=== PATIENT | female | born 1965 | race Caucasian/White ===

== ENCOUNTER → 2020-03-25 08:39 | Outpatient (BNVA) | payer BC, SELFPAY | PROVIDERS: Family Provider Nurse Practitioner Family; PCP Nurse Practitioner Family; Visit Provider Licensed Practical Nurse | DX: M50.020 Cervical disc disorder with myelopathy, mid-cervical region, unspecified level (principal); M51.17 Intervertebral disc disorders with radiculopathy, lumbosacral region; E66.01 Morbid (severe) obesity due to excess calories; Z68.42 Body mass index [BMI] 45.0-49.9, adult | CPT/HCPCS: 99204 ==

== ENCOUNTER → 2020-04-21 14:08 | Outpatient (BNVA) | payer BC, SELFPAY | PROVIDERS: Family Provider Nurse Practitioner Family; PCP Nurse Practitioner Family; Referring Provider Licensed Practical Nurse; Visit Provider Specialist | DX: R20.0 Anesthesia of skin (principal); R20.2 Paresthesia of skin | CPT/HCPCS: 95909 ==

== ENCOUNTER 2020-04-22 09:42 | Outpatient (CLI) | payer BC, SELFPAY ==
--- NOTE | 2020-04-22 11:00 | MR_ITS ---
WS: [id number] MRI LUMBAR SPINE NONCONTRAST TECHNIQUE: Sagittal T1, T2 and STIR imaging. Axial T1 and T2 imaging. CLINICAL INFORMATION: M51.17 Intervertebral disc disorders with radiculopathy, ... FINDINGS: Mild lumbar curve. No acute compression. Disc space narrowing worse L5-S1. L1-L2: Normal. L2-L3: Normal L3-L4: No significant disc bulging. Mild facet arthropathy. Spinal canal is patent. Mild left foramin al narrowing with small left foraminal protrusion. L4-L5: No significant disc bulging. Mild facet arthropathy. Spinal canal and foramen are patent. L5-S1: Mild disc bulging with osteophytic ridging. Slight effacement of ventral thecal sac. Mild righ t greater than left foraminal narrowing. Mild facet arthropathy. Partially visualized left renal cyst measuring 2.9 cm. Mild disc bulging cervical spine at C5-6. MR/MR lumbar spine wo con* [id number] IMPRESSION: 1. Mild lumbar curve. No acute compression. No high-grade central canal stenos is. 2. Tiny left foraminal protrusion L3-4 with mild left foraminal narrowing. 3. Disc osteophytic ridging L5-S1 with mild right greater than left foraminal narrowing. 4. Mild facet arthropathy L3-L5.
== END 2020-04-22 09:43 | disposition home or self-care (01) ==
LOC: RADSHAW 09:53
PROVIDERS: PCP Nurse Practitioner Family; Visit Provider Licensed Practical Nurse
DX: M51.17 Intervertebral disc disorders with radiculopathy, lumbosacral region; M47.816 Spondylosis without myelopathy or radiculopathy, lumbar region; M25.78 Osteophyte, vertebrae; M51.26 Other intervertebral disc displacement, lumbar region
CPT/HCPCS: 72148

== ENCOUNTER 2020-04-22 09:59 | Outpatient (CLI) | payer BC, SELFPAY ==
--- NOTE | 2020-04-22 10:05 | MR_ITS ---
WS: [id number] MRI LEFT KNEE NONCONTRAST TECHNIQUE: Axial PD, coronal PD fat sat, coronal PD, sagittal PD, and sagittal PD fat-sat images obta ined. CLINICAL INFORMATION: PAIN IN LEFT KNEE;SYNOVIAL CYST OF KNEE COMPARISON: None. FINDINGS: Distal quadriceps and patella tendons are intact. Normal ACL and PCL. Intrasubstance signal abnormali ty involving the posterior horn medial meniscus. Lateral meniscus is normal in appearance. Moderate chondromalacia involving the lateral patella facet. No subchondral edema. Medial and lateral collateral ligaments are intact. Normal popliteal fossa. No popliteal cyst in the popliteal fossa. S mall amount of prepatellar soft tissue edema. Mild chondromalacia involving the medial and lateral breanna int compartments. MR/MR knee LT wo con* [id number] IMPRESSION: 1. Normal popliteal fossa. Trace fluid along the gastrocnemius. No popliteal c yst. 2. Anterior and posterior cruciate ligaments are intact. 3. Chronic intrasubstance signal abnormality involving the posterior horn medi al meniscus. No acute appearing meniscal tears. 4. Moderate chondromalacia patella involving the lateral patella facet. Hypert rophic patella. 5. No other significant findings.
--- NOTE | 2020-04-22 13:47 | XRR_ITS ---
PROCEDURE INFORMATION: Exam: XR Right Shoulder Exam date and time: 04/22/2020 2:11 PM Age: 54 years old Clinical indication: Pain; Shoulder; Right; Additional info: Pain in right shoulder, pops TECHNIQUE: Imaging protocol: XR Right shoulder. Views: 2 or more views. COMPARISON: No relevant prior studies available. FINDINGS: Bones/joints: There is no evidence for acute fracture or malalignment. No significant arthritic change. Soft tissues: Normal. XR/XR shoulder RT min 2V* [id number] IMPRESSION: No acute findings.
== END 2020-04-22 10:00 | disposition home or self-care (01) ==
LOC: RADSHAW 10:04
PROVIDERS: PCP Nurse Practitioner Family; Visit Provider Nurse Practitioner Family
DX: M25.511 Pain in right shoulder (principal); M71.22 Synovial cyst of popliteal space [Baker], left knee; M25.562 Pain in left knee; M22.42 Chondromalacia patellae, left knee
CPT/HCPCS: 73030; 73721

== ENCOUNTER 2020-05-18 10:19 | Outpatient (CLI) | payer BC, SELFPAY ==
--- NOTE | 2020-05-18 10:24 | MM_ITS ---
WS: [id number] Bilateral screening digital mammogram, 05/18/2020 Clinical Data: SCREENING Comparison: None. Findings: The breast parenchymal pattern shows fat replacement. No spiculated masses or clustered calcification s are seen. There are no secondary signs of carcinoma. MM/[place] [id number] Impression: 1. Negative bilateral mammogram. 2. Recommend annual screening mammograms. BIRADS: 1-Negative FOLLOW UP: 1 Year Follow-up The CAD loom stop checker was used.
== END 2020-05-18 10:20 | disposition home or self-care (01) ==
LOC: RADSHAW 10:22
PROVIDERS: PCP Nurse Practitioner Family; Visit Provider Nurse Practitioner Family
DX: Z12.31 Encounter for screening mammogram for malignant neoplasm of breast (principal)
CPT/HCPCS: 77067

== ENCOUNTER → 2020-06-22 13:29 | Outpatient (BNVA) | payer BC, SELFPAY | PROVIDERS: PCP Nurse Practitioner Family; Referring Provider Licensed Practical Nurse; Visit Provider Specialist | DX: G62.9 Polyneuropathy, unspecified (principal); E66.01 Morbid (severe) obesity due to excess calories; Z68.42 Body mass index [BMI] 45.0-49.9, adult | CPT/HCPCS: G0463 ==

== ENCOUNTER 2020-06-24 13:57 | Outpatient (CLI) | payer BC, SELFPAY ==
--- NOTE | 2020-06-24 14:10 | XR_ITS ---
WS: [id number] Lumbar spine with flexion, extension, and neutral lateral, 06/24/2020 Clinical Data: M51.17 - Intervertebral disc disorders with radiculopathy, lumbosacral region-S1. Comparison: None. Findings: No compression fractures or subluxation is seen. There is disc space narrowing at L5-S1. No limitation of motion or subluxation is seen in flexion or extension.. XR/XR lumbar spine f/e only [id number] Impression: 1. Degenerative disc narrowing at L5-S1. 2. Negative for limitation of motion or subluxation on flexion or extension.
[2020-06-24 16:41] LABS: Erythrocyte Sedimentation Rate 25 mm/hr (0-15)
[2020-06-24 17:47] LABS: Vitamin B12 262 pg/mL (232-1245)
[2020-06-24 17:52] LABS: C Reactive Protein 4.7 mg/L (0.0-4.9); Thyroid Stimulating Hormone 2.49 uIU/mL (0.27-4.20)
[2020-06-24 18:21] LABS: 25 Hydroxy Vitamin D 9 ng/mL (30-100)
[2020-06-24 22:53] LABS: Folate Level 10.3 ng/mL (4.8-37.3)
[2020-06-29 13:37] LABS: Methylmalonic Acid 200 nmol/L (87-318)
== END 2020-06-24 13:58 | disposition home or self-care (01) ==
LOC: RAD 14:08
PROVIDERS: PCP Nurse Practitioner Family; Visit Provider Licensed Practical Nurse
DX: M51.17 Intervertebral disc disorders with radiculopathy, lumbosacral region (principal); G62.9 Polyneuropathy, unspecified
CPT/HCPCS: 36415; 72120; 82306; 82607; 82746; 83921; 84260; 84443; 85651; 86140; 86431; 99213

== ENCOUNTER → 2020-07-01 11:06 | Outpatient (BNVA) | payer BC, SELFPAY | PROVIDERS: PCP Nurse Practitioner Family; Visit Provider Licensed Practical Nurse | DX: M51.17 Intervertebral disc disorders with radiculopathy, lumbosacral region (principal); E55.9 Vitamin D deficiency, unspecified; E53.8 Deficiency of other specified B group vitamins; G62.89 Other specified polyneuropathies; E66.01 Morbid (severe) obesity due to excess calories; Z68.42 Body mass index [BMI] 45.0-49.9, adult; M50.020 Cervical disc disorder with myelopathy, mid-cervical region, unspecified level | CPT/HCPCS: 99213 ==

== ENCOUNTER 2020-12-16 20:00 | Outpatient (CLI) | payer BC, SELFPAY | END 2020-12-16 20:01 | disposition home or self-care (01) | LOC: SLEEP 12-17 10:01 | PROVIDERS: PCP Nurse Practitioner Family; Visit Provider Anesthesiology Pain Medicine | DX: G47.10 Hypersomnia, unspecified (principal) | CPT/HCPCS: 95810 ==

== ENCOUNTER 2021-04-12 20:00 | Outpatient (CLI) | payer BC, SELFPAY | END 2021-04-12 20:01 | disposition home or self-care (01) | LOC: SLEEP 04-13 11:06 | PROVIDERS: PCP Nurse Practitioner Family; Visit Provider Anesthesiology Pain Medicine | DX: G47.10 Hypersomnia, unspecified (principal) | CPT/HCPCS: G0399 ==

== ENCOUNTER 2021-08-07 02:33 | Emergency (ER) | payer BC, SELFPAY ==
[2021-08-07 02:35] VITALS: BP 185/98; PULSE 60; RESP 14; TEMP 36.4; O2SAT 97; BMI 42.4
[2021-08-07 02:44] VITALS: BP 166/69; PULSE 62; RESP 18; O2SAT 95
--- NOTE | 2021-08-07 02:51 | XRR_ITS ---
PROCEDURE INFORMATION: Exam: XR Chest Exam date and time: 08/07/2021 2:51 AM Age: 55 years old Clinical indication: Pain; Chest pressure; Patient HX: C/O chest discomfort with hypertension. ; Additional info: Chest pain TECHNIQUE: Imaging protocol: XR of the chest. Views: 1 view. COMPARISON: CR XR shoulder RT min 2V* [id number] 04/22/2020 2:07 PM FINDINGS: Lungs: Unremarkable. No consolidation. Pleural spaces: Unremarkable. No pleural effusion. No pneumothorax. Heart/Mediastinum: Unremarkable. No cardiomegaly. Bones/joints: Unremarkable. XR/XR chest 1V portable [id number] IMPRESSION: No acute findings.
--- NOTE | 2021-08-07 02:51 | ECG_ITS ---
[facility] Test Date: 2021-08-07 Pat Name: Josee Waller Department: Room: Gender: Female Real Estate Broker: : 1965 Requested By: Dori Akhtar Order Number: [id number] Plasencia MD: Anna Corey M.D. Measurements Intervals [place] Rate: 55 P: 59 AR: 162 QRS: -7 QRSD: 107 T: 6 QT: 429 QTc: 411 Interpretive Statements SINUS BRADYCARDIA POSSIBLE LEFT ATRIAL ENLARGEMENT [-0.1mV P-WAVE IN V1/V2] Compared to ECG 06/27/2018 18:26:46 Sinus rhythm no longer present Electronically Signed On 08-07-2021 17:05:47 HUMAN RESOURCES BENEFITS ASSISTANT by Anna Corey M.D. [id number]
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
[2021-08-07 03:24] LABS: Basophils % 0.4 %; Eosinophils # 0.2 10^3/uL (0.0-0.8); Hematocrit 40.2 % (37.0-47.0); Hemoglobin 13.3 g/dL (11.5-15.3); Lymphocytes # 2.1 10^3/uL (0.8-4.8); Mean Corpuscular HGB Conc 33.1 g/dL (30.0-36.0); Mean Corpuscular Hemoglobin 31.5 pg (28.0-34.0); Mean Corpuscular Volume 95.3 fl (81-99); Mean Platelet Volume 10.5 fL (7.4-10.4); Monocytes # 0.6 10^3/uL (0.2-0.9); Monocytes % 7.5 %; Neutrophils # 5.01 10^3/uL (1.8-7.7); Neutrophils % 62.7 %; Nucleated Red Blood Cells % 0 %; Platelet Count 243 10^3/cmm (130-400); Red Blood Count 4.22 10^6/uL (4.1-5.3); Red Cell Distribution Width 12.9 % (12.1-15.1)
[2021-08-07 03:43] LABS: Troponin(5th) Baseline 6 ng/L (0-10)
[2021-08-07 03:45] LABS: Alanine Aminotransferase 18 U/L (0-33); Albumin Level 4.4 g/dL (3.5-5.2); Alkaline Phosphatase 66 IU/L (35-105); Anion Gap 18.1 (5-19); Aspartate Amino Transferase 12 U/L (0-32); Blood Urea Nitrogen 14 mg/dL (6-20); Calcium 8.8 mg/dL (8.5-10.5); Carbon Dioxide 21 mmol/L (22-29); Chloride 107 mmol/L (98-107); Globulin 2.7 g/dL (1.3-4.6); Glomerular Filtration Rate 127.6 mL/min (90-130); Glucose 116 mg/dL (65-115); Osmolality Calculated 295 mOsm/kg (285-295); Potassium 4.1 mmol/L (3.5-5.1); Sodium 142 mmol/L (136-145); Total Bilirubin 0.2 mg/dL (0.15-1.2); Total Protein 7.1 g/dL (6.6-8.7)
[2021-08-07] MEDS: labetalol 5 mg/mL SDV 20mL 10 MG IVP (04:37)
[2021-08-07] MEDS: amlodipine 10 mg Tablet PO (04:37)
--- NOTE | 2021-08-07 04:51 | ECG_ITS ---
[facility] Test Date: 2021-08-07 Pat Name: Josee Waller Department: Room: Gender: Female Continuous Improvement Manager: : 1965 Requested By: Dori Akhtar Order Number: [id number] Luis Angel MD: Anna Corey M.D. Measurements Intervals [place] Rate: 57 P: 53 TN: 168 QRS: -11 QRSD: 113 T: 1 QT: 422 QTc: 411 Interpretive Statements SINUS BRADYCARDIA POSSIBLE LEFT ATRIAL ENLARGEMENT [-0.1mV P-WAVE IN V1/V2] MODERATE INTRAVENTRICULAR CONDUCTION DELAY [110+ ms QRS DURATION] Compared to ECG 08/07/2021 03:21:33 Intraventricular conduction delay now present Electronically Signed On 08-07-2021 17:12:10 NUCLEAR TECHNOLOGIST by Anna Corey M.D. [id number]
[2021-08-07 05:22] VITALS: BP 154/58; PULSE 61; RESP 18; O2SAT 97
[2021-08-07 05:23] VITALS: BP 154/58; PULSE 61; RESP 18; O2SAT 97
[2021-08-07 05:43] LABS: Add Urine Microscopic? NO; Charge for UA Resulting for Rev
[2021-08-07 05:49] LABS: Bilirubin Urine Neg (Negative); Blood Urine Neg (Negative); Glucose Urine UA Norm (Normal); Ketones Urine Negative (Negative); Leukocyte Esterase Urine Negative (Negative); Nitrate Urine Negative (Negative); Protein Urine Neg (Negative); Urine Appearance Clear (CLEAR); Urine Color Yellow (Yellow); Urobilinogen Urine Norm (Negative); pH Urine 5 (5-7)
== END 2021-08-07 05:26 | disposition home or self-care (01) ==
PROVIDERS: Physician Assistant; Emergency Provider Emergency Medicine; PCP Nurse Practitioner Family
DX: I16.0 Hypertensive urgency (principal)
CPT/HCPCS: 71045; 80053; 81003; 84484; 85025; 93005; 96374; 99284; J3490

== ENCOUNTER → 2024-02-19 09:27 | Outpatient (BNVA) | payer BC, SELFPAY | PROVIDERS: PCP Nurse Practitioner Family; Visit Provider Family Medicine | DX: G47.00 Insomnia, unspecified (principal); I10 Essential (primary) hypertension; R73.03 Prediabetes; F32.A Depression, unspecified; E53.8 Deficiency of other specified B group vitamins; E55.9 Vitamin D deficiency, unspecified; M43.16 Spondylolisthesis, lumbar region; M50.020 Cervical disc disorder with myelopathy, mid-cervical region, unspecified level; Z86.39 Personal history of other endocrine, nutritional and metabolic disease; E06.3 Autoimmune thyroiditis; M54.12 Radiculopathy, cervical region; M54.16 Radiculopathy, lumbar region; Z68.41 Body mass index [BMI] 40.0-44.9, adult; E78.5 Hyperlipidemia, unspecified | CPT/HCPCS: 80053; 80061; 82306; 82607; 83036; 84439; 84443; 85025; 86376 ==